=== PATIENT | female | born 1990 | race Caucasian/White ===

== ENCOUNTER 2017-06-26 11:03 | Inpatient (IN) | payer BC ==
[2017-06-26] MEDS ORDERED: Carboprost Tromethamine 250 MCG/1 ML Amp IM PRN (11:14)
[2017-06-26] MEDS ORDERED: Misoprostol 200 MCG Tab PO PRN (11:14)
[2017-06-26] MEDS ORDERED: Misoprostol 25 MCG (1/4 of 100 MCG) Tab VAG PRN (11:14)
[2017-06-26] MEDS ORDERED: Lidocaine 1% 50 ML MDV INJECT PRN (11:14)
[2017-06-26] MEDS ORDERED: Sodium Chloride 0.9% 10 ML Syringe FLUSH PRN (11:14)
[2017-06-26] MEDS ORDERED: Sodium Chloride 0.9% 2.5 ML Syringe FLUSH PRN (11:14)
[2017-06-26] MEDS ORDERED: Methylergonovine 0.2 MG/1 ML Amp IM PRN (11:14)
[2017-06-26] MEDS ORDERED: Butorphanol 1 MG/ML SDV IVPUSH PRN (11:14)
[2017-06-26] MEDS ORDERED: Water For Irrigation,Sterile 1,000 ML Container IRR PRN (11:14)
[2017-06-26] MEDS ORDERED: Terbutaline 1 MG/ML SDV SUBCUT PRN (11:14)
[2017-06-26] MEDS ORDERED: Misoprostol 25 MCG (1/4 of 100 MCG) Tab VAG SCH (11:15)
[2017-06-26] MEDS ORDERED: Oxytocin/0.9 % Sodium Chloride 30 UNIT/500 ML BAG IV SCH ×2 (11:15)
[2017-06-26] MEDS ORDERED: Ampicillin 2 GM in Sodium Chloride 0.9% 100 ML IV ONE (12:00)
[2017-06-26] MEDS: Lactated Ringers 1,000 ML IV SCH ×3 (12:13→23:50)
[2017-06-26 13:55] LABS: CHLORIDE,CL 107 mmol/L (98-110); SODIUM,NA 135 mmol/L (136-146)
[2017-06-26] MEDS: Ampicillin 1 GM in Sodium Chloride 0.9% 50 ML IV SCH ×2 (16:03→20:16)
[2017-06-26] MEDS: Nalbuphine 10 MG/1 ML Vial IVPUSH PRN ×2 (17:09→19:37)
[2017-06-27] MEDS ORDERED: Ropivacaine HCl/PF 100 ML ONE (00:30)
[2017-06-27] MEDS ORDERED: fentaNYL 100 MCG/2 ML SDV ONE (00:30)
[2017-06-27] MEDS: Ampicillin 1 GM in Sodium Chloride 0.9% 50 ML IV SCH ×4 (00:43→19:48)
[2017-06-27] MEDS: Lactated Ringers 1,000 ML IV SCH (01:23)
--- NOTE | 2017-06-27 01:47 | PCM.PREANE ---
Preanesthetic Assessment - Procedure Proposed Procedure: Active labor for term ; hypertension led to induction - Anesthesia/Transfusion/Family Hx Anesthesia History: Prior Anesthesia Without Reaction Family History of Anesthesia Reaction: No Intubation History: Unknown - Review of Systems General: Other (labor pains) Pulmonary: No Symptoms Cardiovascular: Other (hypertension with pregnacy - recent onset) Gastrointestinal: Other (GERD of ) Neurological: Other (labor pains) Other: Reports: None - Physical Assessment NPO Status Date: 06/26/17 NPO Status Time: 23:00 (H2O) Height: 5 ft 4 in Weight: 234 lb ASA Class: 2 Mental Status: Alert & Oriented x3 Airway Class: Mallampati = 2 Dentition: Reports: Normal Dentition Thyro-Mental Finger Breadths: 3 Mouth Opening Finger Breadths: 3 Lungs: Clear to Auscultation, Normal Respiratory Effort Cardiovascular: Regular Rate, Regular Rhythm, No Murmurs - Lab Values: Laboratory Last Values WBC 11.78 K/uL (4.0-11.0) H 06/26/17 11:50 RBC 5.04 M/uL (4.30-5.90) 06/26/17 11:50 Hgb 14.5 g/dL (12.0-16.0) 06/26/17 11:50 Hct 43.1 % (36.0-46.0) 06/26/17 11:50 MCV 85.5 fL (80.0-98.0) 06/26/17 11:50 MCH 28.8 pg (27.0-32.0) 06/26/17 11:50 MCHC 33.6 g/dL (31.0-37.0) 06/26/17 11:50 RDW Std Deviation 44.6 fl (28.0-62.0) 06/26/17 11:50 RDW Coeff of Juliet 15 % (11.0-15.0) 06/26/17 11:50 Plt Count 214 K/uL (150-400) 06/26/17 11:50 MPV 11.40 fL (7.40-12.00) 06/26/17 11:50 Nucleated RBC % 0.0 /100WBC 06/26/17 11:50 Nucleated RBCs # 0 K/uL 06/26/17 11:50 Sodium 135 mmol/L (136-146) L 06/26/17 13:29 Potassium 3.8 mmol/L (3.5-5.1) 06/26/17 13:29 Chloride 107 mmol/L (98-110) 06/26/17 13:29 Carbon Dioxide 18 mmol/L (21-31) L 06/26/17 13:29 BUN 10 mg/dL (6.0-23.0) 06/26/17 13:29 Creatinine 0.7 mg/dL (0.6-1.5) 06/26/17 13:29 Est Cr Clr Drug Dosing 105.17 mL/min 06/26/17 13:29 Estimated GFR (MDRD) > 60.0 ml/min 06/26/17 13:29 Glucose 71 mg/dL (60-110) 06/26/17 13:29 Uric Acid 6.1 mg/dL (2.1-6.2) 06/26/17 13:29 Calcium 9.0 mg/dL (8.8-10.8) 06/26/17 13:29 Total Bilirubin 0.5 mg/dL (0.1-1.5) 06/26/17 13:29 AST 15 IU/L (5-40) 06/26/17 13:29 ALT 15 IU/L (8-54) 06/26/17 13:29 Alkaline Phosphatase 164 (40-150) H 06/26/17 13:29 Total Protein 6.8 g/dL (6.0-8.0) 06/26/17 13:29 Albumin 3.3 g/dL (3.5-5.0) L 06/26/17 13:29 Globulin 3.5 g/dL (2.0-3.5) 06/26/17 13:29 Albumin/Globulin Ratio 0.9 (1.3-2.8) L 06/26/17 13:29 Blood Type B POSITIVE 06/26/17 11:50 Antibody Screen NEGATIVE 06/26/17 11:50 - Allergies Allergies/Adverse Reactions: Allergies Allergy/AdvReac Type Severity Reaction Status Date / Time No Known Allergies Allergy Verified 06/26/17 12:31 - Blood Blood Available: Yes Product(s) Available: PRBC (T and S) - Anesthesia Plan Free Text/Narrative:: description of plan with present Pre-Op Medication Ordered: None - Acknowledgements Anesthesia Type Planned: Epidural Pt an Appropriate Candidate for the Planned Anesthesia: Yes Alternatives and Risks of Anesthesia Discussed w Pt/Guardian: Yes Pt/Guardian Understands and Agrees with Anesthesia Plan: Yes PreAnesthesia Questionnaire Cardiovascular History: Reports: Hypertension INTAKE NURSE History: Reports: Neurological History: Reports: Migraines - CURRENT (IN HOUSE) MEDS Current Meds: Current Medications Butorphanol Tartrate (Stadol) 1 mg IVPUSH Q1H PRN PRN Reason: Pain Carboprost Tromethamine (Hemabate Ds) 250 mcg IM ASDIRECTED PRN PRN Reason: Post Hemorrhage Ampicillin Sodium 1 gm/ Sodium (Chloride) 50 mls @ 100 mls/hr IV Q4H RAD Last Admin: 06/27/17 00:43 Dose: 100 mls/hr Lactated Ringer's (Ringers, Lactated) 1,000 mls @ 80 mls/hr IV ASDIRECTED RAD Last Admin: 06/27/17 01:23 Dose: 80 mls/hr Oxytocin/Sodium Chloride (Oxytocin 30 Unit/500 Ml-Ns) 30 unit in 500 mls @ 500 mls/hr IV TITRATE RAD Oxytocin/Sodium Chloride (Oxytocin 30 Unit/500 Ml-Ns) 30 unit in 500 mls @ 2 mls/hr IV TITRATE RAD; 2 MUNITS/MIN PRN Reason: Protocol Last Titration: 06/27/17 00:35 Dose: 4 munits/min, 4 mls/hr Lidocaine HCl (Xylocaine 1%) 50 ml INJECT .ONCE PRN PRN Reason: Laceration repair Methylergonovine Maleate (Methergine) 0.2 mg IM ASDIRECTED PRN PRN Reason: Post Hemorrhage Misoprostol (Cytotec) 200 mcg PO .ONCE PRN PRN Reason: Post Hemorrhage Misoprostol (Cytotec) 25 mcg VAG .ONCE RAD Last Admin: 06/26/17 12:18 Dose: 25 mcg Misoprostol (Cytotec) 25 mcg VAG Q4H PRN PRN Reason: Cervical Ripening Nalbuphine HCl (Nubain) 10 mg IVPUSH Q1H PRN PRN Reason: Pain (severe 7-10) Last Admin: 06/26/17 19:37 Dose: 10 mg Sodium Chloride (Saline Flush) 10 ml FLUSH ASDIRECTED PRN PRN Reason: Keep Vein Open Sodium Chloride (Saline Flush) 2.5 ml FLUSH ASDIRECTED PRN PRN Reason: Keep Vein Open Sterile Water (Sterile Water For Irrigation) 1,000 ml IRR ASDIRECTED PRN PRN Reason: delivery Terbutaline Sulfate (Brethine) 0.25 mg SUBCUT ASDIRECTED PRN PRN Reason: Tacysystole Discontinued Medications Fentanyl (Sublimaze) Confirm Administered Dose 100 mcg .ROUTE .STK-MED ONE Stop: 06/27/17 00:31 Ampicillin Sodium 2 gm/ Sodium (Chloride) 100 mls @ 200 mls/hr IV ONETIME ONE Stop: 06/26/17 12:29 Last Admin: 06/26/17 12:13 Dose: 200 mls/hr Ropivacaine (Naropin 0.2%) Confirm Administered Dose 100 mls @ as directed .ROUTE .STK-MED ONE Stop: 06/27/17 00:31
[2017-06-27] MEDS ORDERED: Acetaminophen 325 MG Tab PO ONE (06:33)
[2017-06-27 07:15] LABS: CHLORIDE,CL 108 mmol/L (98-110); SODIUM,NA 137 mmol/L (136-146)
[2017-06-27] MEDS ORDERED: Dextrose 5%-Lactated Ringers 1,000 ML IV SCH (07:15)
--- NOTE | 2017-06-27 09:43 | PCM.SN ---
- Free Text/Narrative Note: Patient complaint of incomplete analgesia with epidural. Focus is a small "window" on her right side which she and her OB nurse have attempted to cover by turning her on her right side and then bolusing. Since she is doing well with progress to 7cm dilation, I pulled the catheter back 2cm and covered with new transparent material in sterile fashion. She should have enough medication available to complete her labor sequence.
[2017-06-27] MEDS ORDERED: oxyCODONE 5 MG Tab PO PRN (12:40)
[2017-06-27] MEDS ORDERED: Acetaminophen 500 MG Tab PO PRN ×2 (12:40)
[2017-06-27] MEDS ORDERED: Bisacodyl 10 MG Supp RECTAL PRN (12:40)
[2017-06-27] MEDS ORDERED: Docusate Sodium 100 MG Cap PO PRN (12:40)
[2017-06-27] MEDS ORDERED: Ibuprofen 400 MG Tab PO PRN (12:40)
[2017-06-27] MEDS ORDERED: Lanolin 100% Cream 7 GM Tube TOP PRN (12:40)
[2017-06-27] MEDS ORDERED: Benzocaine/Menthol 20%-0.5% Spray 78 GM Cannister TOP PRN (12:40)
[2017-06-27] MEDS ORDERED: Witch Hazel Medicated Pads 40/Jar TOP PRN (12:40)
[2017-06-27] MEDS ORDERED: Ibuprofen 800 MG Tab PO PRN (12:40)
--- NOTE | 2017-06-28 08:12 | PCM48HPAN ---
Post Anesthesia Note - EVALUATION WITHIN 48HRS OF ANESTHETIC Vital Signs in Normal Range: Yes Patient Participated in Evaluation: Yes Respiratory Function Stable: Yes Airway Patent: Yes Cardiovascular Function Stable: Yes Hydration Status Stable: Yes Pain Control Satisfactory: Yes Nausea and Vomiting Control Satisfactory: Yes Mental Status Recovered: Yes
--- NOTE | 2017-06-28 09:31 | PCM.PNPP ---
- General Info Date of Service: 06/28/17 Functional Status: Reports: Pain Controlled, Tolerating Diet, Ambulating, Urinating - Review of Systems General: Denies: Fever, Fatigue, Chills HEENT: Denies: Headaches Pulmonary: Denies: Shortness of Breath, Pleuritic Chest Pain Cardiovascular: Denies: Chest Pain, Palpitations Gastrointestinal: Denies: Abdominal Pain Genitourinary: Denies: Dysuria, Incontinence, Retention Neurological: Denies: Headache Psychiatric: Denies: Depression, Mood Lability, Anxiety - General Info Date of Service: 06/28/17 - Patient Data Vital Signs - Most Recent: Last Vital Signs Temp 36.8 C 06/28/17 06:45 Pulse 100 06/28/17 06:45 Resp 16 06/28/17 06:45 BP 140/88 06/28/17 06:45 Pulse Ox 96 06/28/17 06:45 Weight - Most Recent: 234 lb Lab Results - Last 24 Hours: Laboratory Results - last 24 hr 06/28/17 Range/Units 05:58 Hgb 12.6 (12.0-16.0) g/dL Hct 38.2 (36.0-46.0) % Med Orders - Current: Current Medications Acetaminophen (Tylenol Extra Strength) 500 mg PO Q4H PRN PRN Reason: Pain Acetaminophen (Tylenol Extra Strength) 1,000 mg PO Q4H PRN PRN Reason: Pain Benzocaine/Menthol (Dermoplast Pain Relief 20%-0.5% [place]) 78 gm TOP ASDIRECTED PRN PRN Reason: Perineal Comfort Measure Last Admin: 06/27/17 22:38 Dose: 78 gm Bisacodyl (Dulcolax) 10 mg RECTAL .ONCE PRN PRN Reason: Constipation Carboprost Tromethamine (Hemabate Ds) 250 mcg IM ASDIRECTED PRN PRN Reason: Post Hemorrhage Docusate Sodium (Colace) 100 mg PO BID PRN PRN Reason: Constipation Emollient Ointment (Lansinoh Hpa) 0 gm TOP ASDIRECTED PRN PRN Reason: Sore Nipples Oxytocin/Sodium Chloride (Oxytocin 30 Unit/500 Ml-Ns) 30 unit in 500 mls @ 500 mls/hr IV TITRATE RAD Last Infusion: 06/27/17 12:25 Dose: 150 mls/hr Oxytocin/Sodium Chloride (Oxytocin 30 Unit/500 Ml-Ns) 30 unit in 500 mls @ 2 mls/hr IV TITRATE RAD; 2 MUNITS/MIN PRN Reason: Protocol Last Titration: 06/27/17 11:58 Dose: 999 munits/min, 999 mls/hr Dextrose/Lactated Ringer's (Dextrose 5%-Lactated Ringers) 1,000 mls @ 75 mls/ hr IV ASDIRECTED RAD Last Admin: 06/27/17 07:20 Dose: 75 mls/hr Ibuprofen (Motrin) 400 mg PO Q4H PRN PRN Reason: Pain Ibuprofen (Motrin) 800 mg PO Q6H PRN PRN Reason: Pain Lidocaine HCl (Xylocaine 1%) 50 ml INJECT .ONCE PRN PRN Reason: Laceration repair Last Admin: 06/27/17 12:10 Dose: 50 ml Methylergonovine Maleate (Methergine) 0.2 mg IM ASDIRECTED PRN PRN Reason: Post Hemorrhage Misoprostol (Cytotec) 200 mcg PO .ONCE PRN PRN Reason: Post Hemorrhage Misoprostol (Cytotec) 25 mcg VAG .ONCE RAD Last Admin: 06/26/17 12:18 Dose: 25 mcg Misoprostol (Cytotec) 25 mcg VAG Q4H PRN PRN Reason: Cervical Ripening Oxycodone HCl (Oxycodone) 5 mg PO Q2H PRN PRN Reason: Pain Sodium Chloride (Saline Flush) 10 ml FLUSH ASDIRECTED PRN PRN Reason: Keep Vein Open Sodium Chloride (Saline Flush) 2.5 ml FLUSH ASDIRECTED PRN PRN Reason: Keep Vein Open Sterile Water (Sterile Water For Irrigation) 1,000 ml IRR ASDIRECTED PRN PRN Reason: delivery Last Admin: 06/27/17 12:08 Dose: 1,000 ml Terbutaline Sulfate (Brethine) 0.25 mg SUBCUT ASDIRECTED PRN PRN Reason: Tacysystole Witch Krysta (Tucks) 1 pad TOP ASDIRECTED PRN PRN Reason: comfort care Last Admin: 06/27/17 22:37 Dose: 1 pad Discontinued Medications Acetaminophen (Tylenol) 650 mg PO NOW ONE Stop: 06/27/17 06:34 Last Admin: 06/27/17 06:49 Dose: 650 mg Butorphanol Tartrate (Stadol) 1 mg IVPUSH Q1H PRN PRN Reason: Pain Fentanyl (Sublimaze) Confirm Administered Dose 100 mcg .ROUTE .STK-MED ONE Stop: 06/27/17 00:31 Ampicillin Sodium 2 gm/ Sodium (Chloride) 100 mls @ 200 mls/hr IV ONETIME ONE Stop: 06/26/17 12:29 Last Admin: 06/26/17 12:13 Dose: 200 mls/hr Ampicillin Sodium 1 gm/ Sodium (Chloride) 50 mls @ 100 mls/hr IV Q4H RAD Last Admin: 06/27/17 19:48 Dose: Not Given Lactated Ringer's (Ringers, Lactated) 1,000 mls @ 80 mls/hr IV ASDIRECTED [facility] Last Admin: 06/27/17 01:23 Dose: 80 mls/hr Ropivacaine (Naropin 0.2%) Confirm Administered Dose 100 mls @ as directed .ROUTE .STK-MED ONE Stop: 06/27/17 00:31 Nalbuphine HCl (Nubain) 10 mg IVPUSH Q1H PRN PRN Reason: Pain (severe 7-10) Last Admin: 06/26/17 19:37 Dose: 10 mg - Interaction Disposition, : in Room with Family Feeding: Attempted ; Nursed Fair/Poor, Continues to Breastfeed Support Person: - Recovery Exam Fundal Tone: Firm Fundal Level: 1 Fingerbreadths Below Umbilicus Fundal Placement: Midline Lochia Amount: Scant Lochia Color: Rubra/Red Perineum Description: Intact, Minimal Bruising/Swelling Episiotomy/Laceration: Approximated Urinary Elimination: Voided - Exam General: Alert, Oriented HEENT: Pupils Equal Neck: Supple Lungs: Clear to Auscultation, Normal Respiratory Effort Cardiovascular: Regular Rate, Regular Rhythm GI/Abdominal Exam: No Distention Extremities: Non-Tender, Pedal Edema Skin: Warm Psy/Mental Status: Alert, Normal Affect, Normal Mood - Problem List & Annotations (1) Vaginal delivery SNOMED Code(s): 251747244 Code(s): O80 - ENCOUNTER FOR FULL-TERM UNCOMPLICATED DELIVERY Status: Acute Current Visit: Yes (2) Gestational [-induced] hypertension without significant proteinuria , complicating childbirth SNOMED Code(s): 35745182 Code(s): O13.4 - GESTATNL HTN WITHOUT SIGNIFICANT PROTEIN, COMP CHILDBIRTH Status: Acute Current Visit: Yes - Problem List Review Problem List Initiated/Reviewed/Updated: Yes - Assessment Assessment:: PPD#1 s/p , IOL at 37 weeks for GHTN BP- slightly elevated but stable at 140/80's Denies S/S of preeclampsia - Plan Plan:: Cotinue to observe. Will keep in for 24 hours to monitoe BP. OOB--> ambulate ad gina Aim discharge today
--- NOTE | 2017-06-28 11:38 | OR ---
SURGEON: KORY RAMOS DATE OF PROCEDURE: 06/27/2017 PREOPERATIVE DIAGNOSIS: A 27-year-old for induction of labor at 37 weeks, 0 days secondary to gestational hypertension. GBS positive. POSTOPERATIVE DIAGNOSIS: Status post normal spontaneous vaginal delivery, gestational hypertension, Small for gestational age ESTIMATED BLOOD LOSS: 350 mL. ANESTHESIA: Epidural. FINDINGS: A live male delivered at 1158 hours. scores were 8 and 9. Weight was 2100 g. A second-degree laceration and clitoral tear. Three-vessel cord noted with a small placenta. INDICATIONS: The patient was diagnosed with gestational hypertension in the clinic. She had elevated blood pressures of 130s to 140s over 80s to 90s. She had 24-urine done, which was negative. Based on gestational hypertension, the patient was scheduled for induction of labor. The patient was admitted for induction of labor, and induction of labor was started with Cytotec. The patient received 1 dose of Cytotec, and she became 1, 20, -3. After the Cytotec, the patient had a spontaneous decelerations for about 5 minutes, which recovered back to baseline, and she also had occasional late decelerations. Because the patient was taz, CRB was then placed to traction. After CRB came off, the patient became 6, 80, -2. The patient ruptured spontaneously on her own. The patient had the IUPC then placed, and then Pitocin was titrated to achieve above 200 MVU. Shortly after, the patient made progress to fully dilated. DESCRIPTION OF PROCEDURE: The patient being fully dilated, she was encouraged to push. The patient pushed, delivered the head, followed by the anterior and posterior shoulder, and body the was placed on the mother's abdomen. Delayed cord clamping was observed, cord was clamped and cut. The placenta was delivered by controlled cord traction. The perineum was then inspected, was noted to have a second- degree laceration and a small clitoral tear, which was repaired. After repair, the uterus was then manually massaged. All clots were evacuated and bleeding was noted to be minimal after the procedure. All instrument and pad count were correct x2. The patient tolerated the procedure well. She was left in stable condition. BINH / ANATOLY /[id number] ANICETO
--- NOTE | 2017-06-29 08:22 | PCM.PNPP ---
<Judy Fernandez - Last Filed: 06/29/17 08:20> - General Info Date of Service: 06/29/17 Functional Status: Reports: Pain Controlled, Tolerating Diet, Ambulating, Urinating - Review of Systems General: Denies: Fever, Weakness, Fatigue Pulmonary: Denies: Shortness of Breath, Pleuritic Chest Pain, Cough Cardiovascular: Denies: Chest Pain, Palpitations, Dyspnea on Exertion Gastrointestinal: Denies: Abdominal Pain Genitourinary: Denies: Dysuria - General Info Date of Service: 06/29/17 - Patient Data Vital Signs - Most Recent: Last Vital Signs Temp 36.9 C 06/29/17 04:20 Pulse 82 06/29/17 04:20 Resp 14 06/29/17 04:20 BP 140/99 H 06/29/17 04:20 Pulse Ox 96 06/29/17 04:20 Weight - Most Recent: 106.141 kg Med Orders - Current: Current Medications Acetaminophen (Tylenol Extra Strength) 500 mg PO Q4H PRN PRN Reason: Pain Acetaminophen (Tylenol Extra Strength) 1,000 mg PO Q4H PRN PRN Reason: Pain Benzocaine/Menthol (Dermoplast Pain Relief 20%-0.5% [place]) 78 gm TOP ASDIRECTED PRN PRN Reason: Perineal Comfort Measure Last Admin: 06/27/17 22:38 Dose: 78 gm Bisacodyl (Dulcolax) 10 mg RECTAL .ONCE PRN PRN Reason: Constipation Carboprost Tromethamine (Hemabate Ds) 250 mcg IM ASDIRECTED PRN PRN Reason: Post Hemorrhage Docusate Sodium (Colace) 100 mg PO BID PRN PRN Reason: Constipation Emollient Ointment (Lansinoh Hpa) 0 gm TOP ASDIRECTED PRN PRN Reason: Sore Nipples Last Admin: 06/28/17 21:27 Dose: 1 tube Oxytocin/Sodium Chloride (Oxytocin 30 Unit/500 Ml-Ns) 30 unit in 500 mls @ 500 mls/hr IV TITRATE RAD Last Infusion: 06/27/17 12:25 Dose: 150 mls/hr Oxytocin/Sodium Chloride (Oxytocin 30 Unit/500 Ml-Ns) 30 unit in 500 mls @ 2 mls/hr IV TITRATE RAD; 2 MUNITS/MIN PRN Reason: Protocol Last Titration: 06/27/17 11:58 Dose: 999 munits/min, 999 mls/hr Dextrose/Lactated Ringer's (Dextrose 5%-Lactated Ringers) 1,000 mls @ 75 mls/ hr IV ASDIRECTED RAD Last Admin: 06/27/17 07:20 Dose: 75 mls/hr Ibuprofen (Motrin) 400 mg PO Q4H PRN PRN Reason: Pain Ibuprofen (Motrin) 800 mg PO Q6H PRN PRN Reason: Pain Last Admin: 06/28/17 16:27 Dose: 800 mg Lidocaine HCl (Xylocaine 1%) 50 ml INJECT .ONCE PRN PRN Reason: Laceration repair Last Admin: 06/27/17 12:10 Dose: 50 ml Methylergonovine Maleate (Methergine) 0.2 mg IM ASDIRECTED PRN PRN Reason: Post Hemorrhage Misoprostol (Cytotec) 200 mcg PO .ONCE PRN PRN Reason: Post Hemorrhage Misoprostol (Cytotec) 25 mcg VAG .ONCE RAD Last Admin: 06/26/17 12:18 Dose: 25 mcg Misoprostol (Cytotec) 25 mcg VAG Q4H PRN PRN Reason: Cervical Ripening Oxycodone HCl (Oxycodone) 5 mg PO Q2H PRN PRN Reason: Pain Sodium Chloride (Saline Flush) 10 ml FLUSH ASDIRECTED PRN PRN Reason: Keep Vein Open Sodium Chloride (Saline Flush) 2.5 ml FLUSH ASDIRECTED PRN PRN Reason: Keep Vein Open Sterile Water (Sterile Water For Irrigation) 1,000 ml IRR ASDIRECTED PRN PRN Reason: delivery Last Admin: 06/27/17 12:08 Dose: 1,000 ml Terbutaline Sulfate (Brethine) 0.25 mg SUBCUT ASDIRECTED PRN PRN Reason: Tacysystole Witch Krysta (Tucks) 1 pad TOP ASDIRECTED PRN PRN Reason: comfort care Last Admin: 06/27/17 22:37 Dose: 1 pad Discontinued Medications Acetaminophen (Tylenol) 650 mg PO NOW ONE Stop: 06/27/17 06:34 Last Admin: 06/27/17 06:49 Dose: 650 mg Butorphanol Tartrate (Stadol) 1 mg IVPUSH Q1H PRN PRN Reason: Pain Fentanyl (Sublimaze) Confirm Administered Dose 100 mcg .ROUTE .STK-MED ONE Stop: 06/27/17 00:31 Last Admin: 06/28/17 19:52 Dose: Not Given Ampicillin Sodium 2 gm/ Sodium (Chloride) 100 mls @ 200 mls/hr IV ONETIME ONE Stop: 06/26/17 12:29 Last Admin: 06/26/17 12:13 Dose: 200 mls/hr Ampicillin Sodium 1 gm/ Sodium (Chloride) 50 mls @ 100 mls/hr IV Q4H [facility] Last Admin: 06/27/17 19:48 Dose: Not Given Lactated Ringer's (Ringers, Lactated) 1,000 mls @ 80 mls/hr IV ASDIRECTED [facility] Last Admin: 06/27/17 01:23 Dose: 80 mls/hr Ropivacaine (Naropin 0.2%) Confirm Administered Dose 100 mls @ as directed .ROUTE .STK-MED ONE Stop: 06/27/17 00:31 Last Admin: 06/28/17 19:51 Dose: Not Given Nalbuphine HCl (Nubain) 10 mg IVPUSH Q1H PRN PRN Reason: Pain (severe 7-10) Last Admin: 06/26/17 19:37 Dose: 10 mg - Interaction Infant Disposition, : [place] in Room with Family Feeding: Attempted ; Nursed Fair/Poor, Continues to Breastfeed Support Person: - Recovery Exam Fundal Tone: Firm Fundal Level: At Umbilicus Fundal Placement: Midline Lochia Amount: Scant Lochia Color: Rubra/Red Perineum Description: Other (see below) Other Perinuem Description: 2nd degree laceration, repaired Episiotomy/Laceration: Approximated Bladder Status: Voiding Urinary Elimination: Voided - Exam General: Alert, Oriented Neck: Supple Lungs: Clear to Auscultation, Normal Respiratory Effort Cardiovascular: Regular Rate, Regular Rhythm GI/Abdominal Exam: Normal Bowel Sounds, Soft, Non-Tender, No Organomegaly, No Mass Extremities: Normal Inspection, Pedal Edema (trace) Skin: Warm, Dry, Intact - Problem List & Annotations (1) Vaginal delivery SNOMED Code(s): 565582480 Code(s): O80 - ENCOUNTER FOR FULL-TERM UNCOMPLICATED DELIVERY Status: Acute Current Visit: Yes - Problem List Review Problem List Initiated/Reviewed/Updated: Yes - Assessment Assessment:: PPD#2 s/p , IOL at 37 weeks for GHTN, BP- slightly elevated but stable at 140/80's, Denies S/S of preeclampsia. Will f/u up in clinic of BP check on Wednesday. Discharge home today. - Plan Plan:: Discharge home today. Nothing in the vagina for 6 weeks. Continue PNV while breast feeding. Can use OTC ibuprofen/tylenol as needed for pain. Instructed patient to call if she develops fever greater than 101 or bleeding through a large pad an hour. F/U with [facility] on Wednesday. <Miley Villalobos - Last Filed: 06/29/17 12:30> - Patient Data Vital Signs - Most Recent: Last Vital Signs Temp 36.9 C 06/29/17 04:20 Pulse 82 06/29/17 04:20 Resp 14 06/29/17 04:20 BP 140/99 H 06/29/17 04:20 Pulse Ox 96 06/29/17 04:20 Med Orders - Current: Current Medications Acetaminophen (Tylenol Extra Strength) 500 mg PO Q4H PRN PRN Reason: Pain Acetaminophen (Tylenol Extra Strength) 1,000 mg PO Q4H PRN PRN Reason: Pain Benzocaine/Menthol (Dermoplast Pain Relief 20%-0.5% [place]) 78 gm TOP ASDIRECTED PRN PRN Reason: Perineal Comfort Measure Last Admin: 06/27/17 22:38 Dose: 78 gm Bisacodyl (Dulcolax) 10 mg RECTAL .ONCE PRN PRN Reason: Constipation Carboprost Tromethamine (Hemabate Ds) 250 mcg IM ASDIRECTED PRN PRN Reason: Post Hemorrhage Docusate Sodium (Colace) 100 mg PO BID PRN PRN Reason: Constipation Emollient Ointment (Lansinoh Hpa) 0 gm TOP ASDIRECTED PRN PRN Reason: Sore Nipples Last Admin: 06/28/17 21:27 Dose: 1 tube Oxytocin/Sodium Chloride (Oxytocin 30 Unit/500 Ml-Ns) 30 unit in 500 mls @ 500 mls/hr IV TITRATE RAD Last Infusion: 06/27/17 12:25 Dose: 150 mls/hr Oxytocin/Sodium Chloride (Oxytocin 30 Unit/500 Ml-Ns) 30 unit in 500 mls @ 2 mls/hr IV TITRATE RAD; 2 MUNITS/MIN PRN Reason: Protocol Last Titration: 06/27/17 11:58 Dose: 999 munits/min, 999 mls/hr Dextrose/Lactated Ringer's (Dextrose 5%-Lactated Ringers) 1,000 mls @ 75 mls/ hr IV ASDIRECTED RAD Last Admin: 06/27/17 07:20 Dose: 75 mls/hr Ibuprofen (Motrin) 400 mg PO Q4H PRN PRN Reason: Pain Ibuprofen (Motrin) 800 mg PO Q6H PRN PRN Reason: Pain Last Admin: 06/28/17 16:27 Dose: 800 mg Lidocaine HCl (Xylocaine 1%) 50 ml INJECT .ONCE PRN PRN Reason: Laceration repair Last Admin: 06/27/17 12:10 Dose: 50 ml Methylergonovine Maleate (Methergine) 0.2 mg IM ASDIRECTED PRN PRN Reason: Post Hemorrhage Misoprostol (Cytotec) 200 mcg PO .ONCE PRN PRN Reason: Post Hemorrhage Misoprostol (Cytotec) 25 mcg VAG .ONCE RAD Last Admin: 06/26/17 12:18 Dose: 25 mcg Misoprostol (Cytotec) 25 mcg VAG Q4H PRN PRN Reason: Cervical Ripening Oxycodone HCl (Oxycodone) 5 mg PO Q2H PRN PRN Reason: Pain Sodium Chloride (Saline Flush) 10 ml FLUSH ASDIRECTED PRN PRN Reason: Keep Vein Open Sodium Chloride (Saline Flush) 2.5 ml FLUSH ASDIRECTED PRN PRN Reason: Keep Vein Open Sterile Water (Sterile Water For Irrigation) 1,000 ml IRR ASDIRECTED PRN PRN Reason: delivery Last Admin: 06/27/17 12:08 Dose: 1,000 ml Terbutaline Sulfate (Brethine) 0.25 mg SUBCUT ASDIRECTED PRN PRN Reason: Tacysystole Witch Krysta (Tucks) 1 pad TOP ASDIRECTED PRN PRN Reason: comfort care Last Admin: 06/27/17 22:37 Dose: 1 pad Discontinued Medications Acetaminophen (Tylenol) 650 mg PO NOW ONE Stop: 06/27/17 06:34 Last Admin: 06/27/17 06:49 Dose: 650 mg Butorphanol Tartrate (Stadol) 1 mg IVPUSH Q1H PRN PRN Reason: Pain Fentanyl (Sublimaze) Confirm Administered Dose 100 mcg .ROUTE .STK-MED ONE Stop: 06/27/17 00:31 Last Admin: 06/28/17 19:52 Dose: Not Given Ampicillin Sodium 2 gm/ Sodium (Chloride) 100 mls @ 200 mls/hr IV ONETIME ONE Stop: 06/26/17 12:29 Last Admin: 06/26/17 12:13 Dose: 200 mls/hr Ampicillin Sodium 1 gm/ Sodium (Chloride) 50 mls @ 100 mls/hr IV Q4H [facility] Last Admin: 06/27/17 19:48 Dose: Not Given Lactated Ringer's (Ringers, Lactated) 1,000 mls @ 80 mls/hr IV ASDIRECTED [facility] Last Admin: 06/27/17 01:23 Dose: 80 mls/hr Ropivacaine (Naropin 0.2%) Confirm Administered Dose 100 mls @ as directed .ROUTE .STK-MED ONE Stop: 06/27/17 00:31 Last Admin: 06/28/17 19:51 Dose: Not Given Nalbuphine HCl (Nubain) 10 mg IVPUSH Q1H PRN PRN Reason: Pain (severe 7-10) Last Admin: 06/26/17 19:37 Dose: 10 mg - Plan Plan:: Addendum. Patient seen at bedside today . she denies any headache , RUQ pain and blurring of vision. Her BP this Am is 120s/80s. She was informed of the possiblity of preclampsia and given precaution. Because BP is normal this am, will not start on any antihypertensives. Will have her come to the clinic on Wednesday for a BP check. she was told to call [facility] if heachache , RUQ pain and BV. If she has access to a BP machine at home she can take her BP
== END 2017-06-29 15:20 | disposition home or self-care (01) | DRG 560 ==
LOC: MW.OBCHECK 11:03 → MW.OB 11:14 → MW.OBCHECK 11:14 → MW.OB 11:17 → OBSVTOIN 06-27 12:40
PROVIDERS: ADMIT Obstetrics & Gynecology; ATTEND Obstetrics & Gynecology
PROC: 10E0XZZ Delivery of Products of Conception, External Approach (ICD-10-PCS; principal; 2017-06-27)
PROC: 3E0P7VZ Introduction of Hormone into Female Reproductive, Via Natural or Artificial Opening (ICD-10-PCS; 2017-06-27)
PROC: 0KQM0ZZ Repair Perineum Muscle, Open Approach (ICD-10-PCS; 2017-06-27)
PROC: 4A1H7CZ Monitoring of Products of Conception, Cardiac Rate, Via Natural or Artificial Opening (ICD-10-PCS; 2017-06-27)
DX: O13.4 Gestational [pregnancy-induced] hypertension without significant proteinuria, complicating childbirth (principal); O70.1 Second degree perineal laceration during delivery; O36.5930 Maternal care for other known or suspected poor fetal growth, third trimester, not applicable or unspecified; Z3A.37 37 weeks gestation of pregnancy; Z37.0 Single live birth
CPT/HCPCS: 36415; 51702; 59025; 59409; 80053; 84550; 85014; 85018; 85027; 85384; 85610; 85730; 86850; 86900; 86901; 88307; A9270-GY; J0290; J2300; J2590; J7030; J7042; J7050; J7120

== ENCOUNTER 2020-02-10 07:45 | Inpatient (IN) | payer BC ==
[2020-02-10] MEDS: Lactated Ringers 1,000 ML IV SCH ×4 (08:10→19:34)
[2020-02-10] MEDS ORDERED: Tranexamic Acid 1,000 MG in Sodium Chloride 0.9% 100 ML IV PRN (08:17)
[2020-02-10] MEDS ORDERED: Sodium Chloride 0.9% 10 ML SDV IV PRN (08:17)
[2020-02-10] MEDS ORDERED: Butorphanol 1 MG/ML SDV IVPUSH PRN (08:17)
[2020-02-10] MEDS ORDERED: Carboprost Tromethamine 250 MCG/1 ML Amp IM PRN (08:17)
[2020-02-10] MEDS ORDERED: Water For Irrigation,Sterile 1,000 ML Container IRR PRN (08:17)
[2020-02-10] MEDS ORDERED: Sodium Chloride 0.9% 2.5 ML Syringe FLUSH PRN (08:17)
[2020-02-10] MEDS ORDERED: Ondansetron 4 MG/2 ML SDV IVPUSH PRN (08:17)
[2020-02-10] MEDS ORDERED: Lidocaine 1% 50 ML MDV INJECT PRN (08:17)
[2020-02-10] MEDS ORDERED: Terbutaline 1 MG/ML SDV SUBCUT PRN (08:17)
[2020-02-10] MEDS ORDERED: Sodium Chloride 0.9% 10 ML Syringe FLUSH PRN (08:17)
[2020-02-10] MEDS ORDERED: Methylergonovine 0.2 MG/1 ML Amp IM PRN (08:17)
[2020-02-10] MEDS ORDERED: Misoprostol 200 MCG Tab PO PRN (08:17)
[2020-02-10] MEDS ORDERED: Oxytocin/0.9 % Sodium Chloride 30 UNIT/500 ML BAG IV SCH ×2 (08:30)
[2020-02-10] MEDS ORDERED: Ampicillin 2 GM in Sodium Chloride 0.9% 100 ML IV ONE (09:00)
[2020-02-10] MEDS ORDERED: Misoprostol 25 MCG (1/4 of 100 MCG) Tab VAG PRN ×2 (09:00→13:00)
[2020-02-10] MEDS: Ampicillin 1 GM in Sodium Chloride 0.9% 50 ML IV SCH ×3 (12:44→21:09)
[2020-02-10] MEDS ORDERED: fentaNYL 100 MCG/2 ML SDV ONE (18:03)
[2020-02-10] MEDS ORDERED: Ropivacaine HCl/PF 100 ML ONE (18:04)
--- NOTE | 2020-02-10 18:48 | PCM.PRNOTE ---
- Free Text/Narrative Note: Anes Note pt requested labor epidural for labor and delivery Risks and methods discussed. She wishes to proceed Level L3-L4 midline approach. Steril technique Chloroprep scrub to lumbar area Steril fenistrated drap applied Epidural space easily achieved. 2nd attempt using PEDRITO technique PEDRITO at 4cm. Cath threaded 5cm with ease Cath secured at skin at 10cm using steril clear adhesive dressing Test dose 1830 . 3cc 1.5% lido with epi neg Load 1833 10cc of 0.2% Ropivicain with 1mcg/cc fentanyl added Pump 1840 90cc same solution rate is 8cc/hr with 6cc q 20 min bolus THEODORA well Time with patient [id number] Tristian Muñoz [employer] CLEANER
[2020-02-10] MEDS ORDERED: Bisacodyl 10 MG Supp RECTAL PRN (22:02)
[2020-02-10] MEDS ORDERED: Acetaminophen 500 MG Tab PO PRN (22:02)
[2020-02-10] MEDS ORDERED: Benzocaine/Menthol 20%-0.5% Spray 78 GM Cannister TOP PRN (22:02)
[2020-02-10] MEDS ORDERED: Ibuprofen 400 MG Tab PO PRN (22:02)
[2020-02-10] MEDS ORDERED: Docusate Sodium 100 MG Cap PO PRN (22:02)
[2020-02-10] MEDS ORDERED: Witch Hazel Medicated Pads 40/Jar TOP PRN (22:02)
[2020-02-10] MEDS ORDERED: Lanolin 100% Cream 7 GM Tube TOP PRN (22:02)
[2020-02-10] MEDS ORDERED: oxyCODONE 5 MG Tab PO PRN (22:02)
--- NOTE | 2020-02-10 22:09 | PCM.OPNOTE ---
- General Post-Op/Procedure Note Date of Surgery/Procedure: 02/10/20 Operative Procedure(s): / repair of superficial labial lacerations and 2nd MLL Findings: Viable female APGARs 9, 9 weight 7 lb 7 oz. Spontaneous delivery intact placenta with 3V cord. Pre Op Diagnosis: 40/5 week IUP. IOL for past due PG Post-Op Diagnosis: Same Anesthesia Technique: Epidural Primary Surgeon: Rosaura Son EBL in mLs: 250 Complications: none known Condition: Stable Free Text/Narrative:: Dictation [id number]
--- NOTE | 2020-02-10 23:50 | OR ---
SURGEON: Rosaura Son M.D. DATE OF PROCEDURE: 02/10/2020 PREOPERATIVE DIAGNOSES: 1. A 40 and 5 week intrauterine . 2. Induction of labor for past due . POSTOPERATIVE DIAGNOSES: 1. A 40 and 5 week intrauterine . 2. Induction of labor for past due . PROCEDURE: Spontaneous vaginal delivery with repair of a superficial bilateral labial laceration and second-degree midline laceration. PRIMARY SURGEON: Rosaura Son MD. ANESTHESIA: Epidural. ESTIMATED BLOOD LOSS: 250 mL. COMPLICATIONS: None known. FINDINGS: Viable female. scores 9 at 1 minute, 9 at 5 minutes. Weight of 7 pounds 7 ounces. Spontaneous delivery. Intact placenta, 3-vessel cord. DISPOSITION: Infant to nursery, mom in LDRP. PROCEDURE DETAILS: Harmony is a 29-year-old G2, P1 at 40 and 5 weeks' gestational age, who presents on the net front end developer of 02/10/2020 for scheduled induction of labor due to past due . She underwent Cytotec ripening and then transitioned to Pitocin. She underwent ampicillin prophylaxis for group B strep positive status. She is COVID negative. heart tones category 1. The patient became increasingly uncomfortable and underwent regional anesthesia in the form of epidural, became more comfortable and thereafter was found to be 2 cm, 60% effaced, -2 station. Amniotomy was performed. Clear fluid was returned and an IUPC was placed. The patient began to progress much more rapidly thereafter, but then shortly over 2 hours, she progressed to complete, 100% effaced, +2 station, was called for delivery. Upon my arrival, the patient was placed in modified dorsal lithotomy position, was prepped and draped in the usual aseptic manner. Began pushing efforts, was able to push readily to a +4 station, was able to deliver infant's head atraumatically spontaneously, followed by anterior shoulder, posterior shoulder, and remainder of the body without difficulty. The 's oropharynx and nares were bulb suctioned. The infant was handed off to her mother with attending nursing staff at her side. After a delay, cord was clamped x2 and cut. Cord arterial, cord venous, cord blood sampling was obtained. Light pressure was applied while the placenta was delivered spontaneously intact. Vigorous fundal uterine massage was then applied while 30 units of Pitocin was delivered in 500 mL of IV fluid. Upon inspection of cervix, vaginal sidewalls, and perineum, there was found to be superficial bilateral labial lacerations. This was mainly due to her lichen sclerosus. There was just very little elasticity to this tissue. Therefore, these were reapproximated using the 3-0 Vicryl in continuous running fashion. There was also a second-degree midline laceration repaired using 3-0 Vicryl in usual fashion. Hemostasis appeared evident. Sponge, instrument, and needle count was correct. The patient remained in LDRP, to nursery. KEMAR / ANATOLY /[id number]
[2020-02-11] MEDS: Ibuprofen 800 MG Tab PO PRN ×3 (01:38→15:50)
[2020-02-11] MEDS: Acetaminophen 500 MG Tab PO PRN ×2 (08:19→15:49)
--- NOTE | 2020-02-11 08:45 | PCM.PNPP ---
- General Info Date of Service: 02/11/20 Functional Status: Reports: Pain Controlled, Tolerating Diet, Ambulating, Urinating - Review of Systems General: Denies: Fever, Weakness, Fatigue Pulmonary: Denies: Shortness of Breath Cardiovascular: Denies: Chest Pain, Palpitations, Lightheadedness Gastrointestinal: Denies: Abdominal Pain, Nausea, Vomiting Genitourinary: Denies: Flank Pain Musculoskeletal: Reports: No Symptoms Skin: Reports: No Symptoms Neurological: Reports: No Symptoms Psychiatric: Reports: No Symptoms - General Info Date of Service: 02/11/20 - Patient Data Vital Signs - Most Recent: Last Vital Signs Temp 35.9 C L 02/11/20 08:00 Pulse 70 02/11/20 08:00 Resp 14 02/11/20 08:00 BP 135/82 02/11/20 08:00 Pulse Ox 97 02/11/20 08:00 Weight - Most Recent: 104.78 kg Lab Results - Last 24 Hours: Laboratory Results - last 24 hr 02/10/20 02/10/20 02/10/20 Range/Units 08:00 08:08 09:32 WBC 10.23 (4.0-11.0) K/uL RBC 4.66 (4.30-5.90) M/uL Hgb 12.8 (12.0-16.0) g/dL Hct 39.2 (36.0-46.0) % MCV 84.1 (80.0-98.0) fL MCH 27.5 (27.0-32.0) pg MCHC 32.7 (31.0-37.0) g/dL RDW Std Deviation 43.5 (28.0-62.0) fl RDW Coeff of Juliet 14 (11.0-15.0) % Plt Count 162 (150-400) K/uL MPV 12.10 H (7.40-12.00) fL Nucleated RBC % 0.0 /100WBC Nucleated RBCs # 0 K/uL Cord ABG pH (7.18-7.38) Cord ABG Base Excess (-10--2) Cord VBG pH (7.25-7.45) Cord VBG Base Excess (-10--2) COVID-19 (HALEY) NEGATIVE (NEGATIVE) Blood Type B POSITIVE Antibody Screen NEGATIVE 02/10/20 02/11/20 Range/Units 21:36 06:30 WBC (4.0-11.0) K/uL RBC (4.30-5.90) M/uL Hgb 11.6 L (12.0-16.0) g/dL Hct 36.0 (36.0-46.0) % MCV (80.0-98.0) fL MCH (27.0-32.0) pg MCHC (31.0-37.0) g/dL RDW Std Deviation (28.0-62.0) fl RDW Coeff of Juliet (11.0-15.0) % Plt Count (150-400) K/uL MPV (7.40-12.00) fL Nucleated RBC % /100WBC Nucleated RBCs # K/uL Cord ABG pH 7.292 (7.18-7.38) Cord ABG Base Excess -5 (-10--2) Cord VBG pH 7.363 (7.25-7.45) Cord VBG Base Excess -4 (-10--2) COVID-19 (HALEY) (NEGATIVE) Blood Type Antibody Screen Med Orders - Current: Current Medications Acetaminophen (Tylenol Extra Strength) 500 mg PO Q4H PRN PRN Reason: Pain Acetaminophen (Tylenol Extra Strength) 1,000 mg PO Q4H PRN PRN Reason: Pain Last Admin: 02/11/20 08:19 Dose: 1,000 mg Documented by: Benzocaine/Menthol (Dermoplast Pain Relief 20%-0.5% Corcoran) 78 gm TOP ASDIRECTED PRN PRN Reason: Perineal Comfort Measure Last Admin: 02/11/20 01:28 Dose: 1 canister Documented by: Bisacodyl (Dulcolax) 10 mg RECTAL ONETIME PRN PRN Reason: Constipation Carboprost Tromethamine (Hemabate Ds) 250 mcg IM ASDIRECTED PRN PRN Reason: Post Hemorrhage Docusate Sodium (Colace) 100 mg PO BID PRN PRN Reason: Constipation Last Admin: 02/11/20 08:19 Dose: 100 mg Documented by: Emollient Ointment (Lansinoh Hpa) 0 gm TOP ASDIRECTED PRN PRN Reason: Sore Nipples Oxytocin/Sodium Chloride (Oxytocin 30 Unit/500 Ml-Ns) 30 unit in 500 mls @ 999 mls/hr IV TITRATE RAD Tranexamic Acid 1,000 mg/ (Sodium Chloride) 110 mls @ 660 mls/hr IV ONETIME PRN PRN Reason: Bleeding Oxytocin/Sodium Chloride (Oxytocin 30 Unit/500 Ml-Ns) 30 unit in 500 mls @ 2 mls/hr IV TITRATE RAD; Protocol Last Titration: 02/10/20 17:48 Dose: 4 munits/min, 4 mls/hr Documented by: Lactated Ringer's (Ringers, Lactated) 1,000 mls @ 150 mls/hr IV ASDIRECTED RAD Last Admin: 02/10/20 19:34 Dose: 150 mls/hr Documented by: Ibuprofen (Motrin) 400 mg PO Q4H PRN PRN Reason: Pain Ibuprofen (Motrin) 800 mg PO Q6H PRN PRN Reason: Pain Last Admin: 02/11/20 08:17 Dose: 800 mg Documented by: Lidocaine HCl (Xylocaine 1%) 50 ml INJECT ONETIME PRN PRN Reason: Laceration repair Methylergonovine Maleate (Methergine) 0.2 mg IM ASDIRECTED PRN PRN Reason: Post Hemorrhage Ondansetron HCl (Zofran) 4 mg IVPUSH Q6H PRN PRN Reason: Nausea/Vomiting Oxycodone HCl (Oxycodone) 5 mg PO Q2H PRN PRN Reason: Pain Sodium Chloride (Saline Flush) 10 ml FLUSH ASDIRECTED PRN PRN Reason: Keep Vein Open Sodium Chloride (Saline Flush) 2.5 ml FLUSH ASDIRECTED PRN PRN Reason: Keep Vein Open Sodium Chloride (Normal Saline) 10 ml IV ASDIRECTED PRN PRN Reason: IV Use Sterile Water (Sterile Water For Irrigation) 1,000 ml IRR ASDIRECTED PRN PRN Reason: delivery Witch Krysta (Tucks) 1 pad TOP ASDIRECTED PRN PRN Reason: comfort care Last Admin: 02/11/20 01:28 Dose: 1 container Documented by: Discontinued Medications Butorphanol Tartrate (Stadol) 1 mg IVPUSH Q1H PRN PRN Reason: Pain Fentanyl (Sublimaze) Confirm Administered Dose 100 mcg .ROUTE .STK-MED ONE Stop: 02/10/20 18:04 Ampicillin Sodium 2 gm/ Sodium (Chloride) 100 mls @ 200 mls/hr IV ONETIME ONE Stop: 02/10/20 09:29 Last Admin: 02/10/20 09:09 Dose: 200 mls/hr Documented by: Ampicillin Sodium 1 gm/ Sodium (Chloride) 50 mls @ 100 mls/hr IV Q4H RAD Last Admin: 02/10/20 21:09 Dose: 100 mls/hr Documented by: Ropivacaine (Naropin 0.2%) Confirm Administered Dose 100 mls @ as directed .ROUTE .STK-MED ONE Stop: 02/10/20 18:05 Misoprostol (Cytotec) 200 mcg PO ONETIME PRN PRN Reason: Post Hemorrhage Misoprostol (Cytotec) 25 mcg VAG ONETIME PRN PRN Reason: Cervical Ripening Last Admin: 02/10/20 09:20 Dose: 25 mcg Documented by: Misoprostol (Cytotec) 25 mcg VAG Q4H PRN PRN Reason: Cervical Ripening Last Admin: 02/10/20 12:50 Dose: 25 mcg Documented by: Terbutaline Sulfate (Brethine) 0.25 mg SUBCUT ASDIRECTED PRN PRN Reason: Tacysystole - Interaction Support Person: Significant Other - Recovery Exam Fundal Tone: Firm Fundal Level: At Umbilicus Fundal Placement: Midline Lochia Amount: Small Lochia Color: Rubra/Red Episiotomy/Laceration: Approximated - Exam General: Alert, Oriented Lungs: Normal Respiratory Effort Cardiovascular: Regular Rate, Regular Rhythm GI/Abdominal Exam: Normal Bowel Sounds, Soft Extremities: Pedal Edema (trace). No: Yovana's Sign Skin: Warm, Dry, Intact Neurological: No New Focal Deficit Psy/Mental Status: Alert, Normal Affect, Normal Mood - Problem List & Annotations (1) Vaginal delivery SNOMED Code(s): 563183010 Code(s): O80 - ENCOUNTER FOR FULL-TERM UNCOMPLICATED DELIVERY Status: Acute Current Visit: No - Problem List Review Problem List Initiated/Reviewed/Updated: Yes - My Orders Last 24 Hours: My Active Orders 02/10/20 08:08 RPR (SYPHILIS SERO) W/ RFLX [REF] Routine 02/10/20 08:17 Patient Status [ADT] Routine Carboprost Tromethamine [Hemabate DS] 250 mcg IM ASDIRECTED PRN Lidocaine 1% [Xylocaine 1%] 50 ml INJECT ONETIME PRN Methylergonovine [Methergine] 0.2 mg IM ASDIRECTED PRN Ondansetron [Zofran] 4 mg IVPUSH Q6H PRN Sodium Chloride 0.9% [Normal Saline] 10 ml IV ASDIRECTED PRN Sodium Chloride 0.9% [Saline Flush] 10 ml FLUSH ASDIRECTED PRN Sodium Chloride 0.9% [Saline Flush] 2.5 ml FLUSH ASDIRECTED PRN Tranexamic Acid [Cyklokapron] 1,000 mg Sodium Chloride 0.9% [Normal Saline] 100 ml IV ONETIME Water For Irrigation,Sterile [Sterile Water for Irrigation] 1,000 ml IRR ASDIRECTED PRN Peripheral IV Insertion Adult [OM.PC] Routine Resuscitation Status Routine 02/10/20 08:30 Lactated Ringers [Ringers, Lactated] 1,000 ml IV ASDIRECTED Oxytocin/0.9 % Sodium Chloride [Oxytocin 30 Unit/500 ML-NS] 30 unit in 500 ml IV TITRATE Oxytocin/0.9 % Sodium Chloride [Oxytocin 30 Unit/500 ML-NS] 30 unit in 500 ml IV TITRATE Medication Administration Instruction [OM.PC] Q3H 02/10/20 22:02 Patient Status [ADT] Routine May Shower [RC] ASDIRECTED Notify Provider Vital Signs [RC] ASDIRECTED Up ad Ifeoma [RC] ASDIRECTED Vital Signs [RC] PER UNIT ROUTINE Acetaminophen [Tylenol Extra Strength] 1,000 mg PO Q4H PRN Acetaminophen [Tylenol Extra Strength] 500 mg PO Q4H PRN Benzocaine/Menthol [Dermoplast Pain Relief 20%-0.5% Corcoran] 78 gm TOP ASDIRECTED PRN Docusate Sodium [Colace] 100 mg PO BID PRN Ibuprofen [Motrin] 400 mg PO Q4H PRN Ibuprofen [Motrin] 800 mg PO Q6H PRN Lanolin [Lansinoh HPA] See Dose Instructions TOP ASDIRECTED PRN bisacodyL [Dulcolax] 10 mg RECTAL ONETIME PRN oxyCODONE 5 mg PO Q2H PRN witch Krysta [Tucks] 1 pad TOP ASDIRECTED PRN Assess Lochia [WOMSER] Per Unit Routine Assess Uterine Involution [WOMSER] Per Unit Routine Ice Therapy [OM.PC] Per Unit Routine Perineal Care [OM.PC] Per Unit Routine Peripheral IV Discontinue [OM.PC] Routine Sitz Bath [OM.PC] Per Unit Routine 02/10/20 22:03 Cooling Warming Measures [RC] ASDIRECTED 02/11/20 08:43 Ready for Discharge [RC] PER UNIT ROUTINE - Assessment Assessment:: PPD 1 status post - Plan Plan:: Doing well overall--really prefers to go home this evening. Discharge to home. Discharge instructions reviewed. Follow up at [facility] 6 weeks. Infection and bleeding warnings.
== END 2020-02-11 23:50 | disposition home or self-care (01) | DRG 560 ==
LOC: MW.OBCHECK 07:45 → MW.OB 07:46 → MW.OBCHECK 08:17 → OBSVTOIN 22:02 → MW.OB 02-11 02:41
PROVIDERS: ADMIT Obstetrics & Gynecology; ATTEND Obstetrics & Gynecology
PROC: 10E0XZZ Delivery of Products of Conception, External Approach (ICD-10-PCS; principal; 2020-02-10)
PROC: 10907ZC Drainage of Amniotic Fluid, Therapeutic from Products of Conception, Via Natural or Artificial Opening (ICD-10-PCS; 2020-02-10)
PROC: 10H07YZ Insertion of Other Device into Products of Conception, Via Natural or Artificial Opening (ICD-10-PCS; 2020-02-10)
PROC: 0KQM0ZZ Repair Perineum Muscle, Open Approach (ICD-10-PCS; 2020-02-10)
PROC: 3E0R3BZ Introduction of Anesthetic Agent into Spinal Canal, Percutaneous Approach (ICD-10-PCS; 2020-02-10)
PROC: 00HU33Z Insertion of Infusion Device into Spinal Canal, Percutaneous Approach (ICD-10-PCS; 2020-02-10)
PROC: 3E0P7VZ Introduction of Hormone into Female Reproductive, Via Natural or Artificial Opening (ICD-10-PCS; 2020-02-10)
PROC: 3E033VJ Introduction of Other Hormone into Peripheral Vein, Percutaneous Approach (ICD-10-PCS; 2020-02-10)
DX: O48.0 Post-term pregnancy (principal); Z37.0 Single live birth; Z3A.40 40 weeks gestation of pregnancy; O70.1 Second degree perineal laceration during delivery; Z11.59 Encounter for screening for other viral diseases
CPT/HCPCS: 36415; 51702; 59025; 59409; 82803; 85014; 85018; 85027; 86592; 86850; 86900; 86901; A9270-GY; J0290; J2590; J2795; J3010; J7050; J7120; U0002

== ENCOUNTER 2020-05-16 18:59 | Emergency (ER) | payer BC ==
--- NOTE | 2020-05-16 19:20 | EDM.PDOC ---
ED HPI GENERAL MEDICAL PROBLEM - General Chief Complaint: Respiratory Problem Stated Complaint: DIIFCULTY BREATHING, COVID Time Seen by Provider: 05/16/20 19:55 Source of Information: Reports: Patient History Limitations: Reports: No Limitations - History of Present Illness INITIAL COMMENTS - FREE TEXT/NARRATIVE: Patient is a 29-year-old female who presents today for shortness of breath and feeling dizzy. Patient states she was diagnosed with COVID-19 a few days ago. Patient states that her doctor informed her that if she felt like she was have difficulty breathing to please return to the ED. Patient denies any chest pain nausea vomiting or decreased p.o. intake. Patient denies any leg swelling. 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: , Spontaneous Neurological History: Reports: Migraines, Other (See Below) Other Neuro History: only ever takes Tylenol for migraines Dermatologic History: Reports: Psoriasis, Other (See Below) Other Dermatologic History: topical ointment, did not use during - Infectious Disease History Infectious Disease History: Reports: Chicken Pox - Past Surgical History Cardiovascular Surgical History: Reports: None Neurological Surgical History: Reports: None Dermatological Surgical History: Reports: None Social & Family History - Family History Family Medical History: Noncontributory Cardiac: Reports: Heart Failure, Hypertension Endocrine/Metabolic: Reports: Diabetes, Gestational Oncologic: Reports: Breast - Caffeine Use Caffeine Use: Reports: Coffee Caffeine Use Comment: a cup a day, most days ED ROS GENERAL - Review of Systems Review Of Systems: Comprehensive ROS is negative, except as noted in HPI. Constitutional: Reports: No Symptoms HEENT: Reports: No Symptoms Respiratory: Reports: Shortness of Breath Cardiovascular: Reports: No Symptoms Endocrine: Reports: No Symptoms GI/Abdominal: Reports: No Symptoms : Reports: No Symptoms Musculoskeletal: Reports: No Symptoms Skin: Reports: No Symptoms Neurological: Reports: Dizziness Psychiatric: Reports: No Symptoms Hematologic/Lymphatic: Reports: No Symptoms Immunologic: Reports: No Symptoms ED EXAM, GENERAL - Physical Exam Exam: See Below Exam Limited By: No Limitations General Appearance: Alert, No Apparent Distress Head: Atraumatic Neck: Normal Inspection Respiratory/Chest: No Respiratory Distress, Lungs Clear, Normal Breath Sounds Cardiovascular: Regular Rate, Rhythm GI/Abdominal: Normal Bowel Sounds, Soft, Non-Tender Extremities: Normal Range of Motion Neurological: Alert, Oriented, Normal Cognition, Normal Gait #1 Interpretation EKG Date: 05/16/20 Time: 20:27 Rhythm: Other (sinus tach) Rate (Beats/Min): 103 [place]: Normal ST-T: Normal Course - Vital Signs Last Recorded V/S: Last Vital Signs Temp 97.2 F 05/16/20 19:05 Pulse 122 H 05/16/20 19:05 Resp 20 05/16/20 19:05 BP 101/64 05/16/20 19:05 Pulse Ox 95 05/16/20 19:05 - Orders/Labs/Meds Orders: Active Orders 24 hr Category Date Time Status EKG Documentation Completion [RC] STAT Care 05/16/20 19:40 Active Labs: Laboratory Tests 05/16/20 05/16/20 05/16/20 Range/Units 19:15 19:36 19:36 WBC 4.06 (4.0-11.0) K/uL RBC 5.33 (4.30-5.90) M/uL Hgb 14.5 (12.0-16.0) g/dL Hct 44.9 (36.0-46.0) % MCV 84.2 (80.0-98.0) fL MCH 27.2 (27.0-32.0) pg MCHC 32.3 (31.0-37.0) g/dL RDW Std Deviation 42.2 (28.0-62.0) fl RDW Coeff of Juliet 14 (11.0-15.0) % Plt Count 200 (150-400) K/uL MPV 10.00 (7.40-12.00) fL Neut % (Auto) 42.9 L (48.0-80.0) % Lymph % (Auto) 49.0 H (16.0-40.0) % Haakon % (Auto) 6.9 (0.0-15.0) % Eos % (Auto) 1.0 (0.0-7.0) % Baso % (Auto) 0.2 (0.0-1.5) % Neut # (Auto) 1.7 (1.4-5.7) K/uL Lymph # (Auto) 2.0 (0.6-2.4) K/uL Haakon # (Auto) 0.3 (0.0-0.8) K/uL Eos # (Auto) 0.0 (0.0-0.7) K/uL Baso # (Auto) 0.0 (0.0-0.1) K/uL Nucleated RBC % 0.0 /100WBC Nucleated RBCs # 0 K/uL D-Dimer, Quantitative 0.68 H (0.0-0.50) mg/L FEU Sodium (136-145) mmol/L Potassium (3.5-5.1) mmol/L Chloride (98-107) mmol/L Carbon Dioxide (21.0-32.0) mmol/L BUN (7.0-18.0) mg/dL Creatinine (0.6-1.0) mg/dL Est Cr Clr Drug Dosing mL/min Estimated GFR (MDRD) ml/min Glucose (74-106) mg/dL Calcium (8.5-10.1) mg/dL Total Bilirubin (0.2-1.0) mg/dL AST (15-37) IU/L ALT (14-63) IU/L Alkaline Phosphatase (46-116) U/L Total Protein (6.4-8.2) g/dL Albumin (3.4-5.0) g/dL Globulin (2.6-4.0) g/dL Albumin/Globulin Ratio (0.9-1.6) Urine HCG, Qual NEGATIVE (NEGATIVE) 05/16/20 Range/Units 19:36 WBC (4.0-11.0) K/uL RBC (4.30-5.90) M/uL Hgb (12.0-16.0) g/dL Hct (36.0-46.0) % MCV (80.0-98.0) fL MCH (27.0-32.0) pg MCHC (31.0-37.0) g/dL RDW Std Deviation (28.0-62.0) fl RDW Coeff of Juliet (11.0-15.0) % Plt Count (150-400) K/uL MPV (7.40-12.00) fL Neut % (Auto) (48.0-80.0) % Lymph % (Auto) (16.0-40.0) % Haakon % (Auto) (0.0-15.0) % Eos % (Auto) (0.0-7.0) % Baso % (Auto) (0.0-1.5) % Neut # (Auto) (1.4-5.7) K/uL Lymph # (Auto) (0.6-2.4) K/uL Haakon # (Auto) (0.0-0.8) K/uL Eos # (Auto) (0.0-0.7) K/uL Baso # (Auto) (0.0-0.1) K/uL Nucleated RBC % /100WBC Nucleated RBCs # K/uL D-Dimer, Quantitative (0.0-0.50) mg/L FEU Sodium 140 (136-145) mmol/L Potassium 3.9 (3.5-5.1) mmol/L Chloride 104 (98-107) mmol/L Carbon Dioxide 26.7 (21.0-32.0) mmol/L BUN 9 (7.0-18.0) mg/dL Creatinine 1.0 (0.6-1.0) mg/dL Est Cr Clr Drug Dosing 72.32 mL/min Estimated GFR (MDRD) > 60.0 ml/min Glucose 106 (74-106) mg/dL Calcium 8.3 L (8.5-10.1) mg/dL Total Bilirubin 0.4 (0.2-1.0) mg/dL AST 50 H (15-37) IU/L ALT 69 H (14-63) IU/L Alkaline Phosphatase 107 (46-116) U/L Total Protein 7.5 (6.4-8.2) g/dL Albumin 3.8 (3.4-5.0) g/dL Globulin 3.7 (2.6-4.0) g/dL Albumin/Globulin Ratio 1.0 (0.9-1.6) Urine HCG, Qual (NEGATIVE) Meds: Medications Discontinued Medications Generic Name Dose Route Start Last Admin Trade Name Freq PRN Reason Stop Dose Admin Iopamidol 90 ml 05/16/20 20:58 05/16/20 20:58 Isovue Multipack-370 (76%) IVPUSH 05/16/20 20:59 90 ml ONETIME STA Administration Departure - Departure Time of Disposition: 21:39 Disposition: Home, Self-Care 01 Clinical Impression: Dyspnea - Discharge Information *PRESCRIPTION DRUG MONITORING PROGRAM REVIEWED*: Not Applicable *COPY OF PRESCRIPTION DRUG MONITORING REPORT IN PATIENT RODRICK: Not Applicable Instructions: Shortness of Breath, Adult Referrals: PCP,None [Primary Care Provider] - Forms: ED Department Discharge Additional Instructions: The following information is given to patients seen in the emergency department who are being discharged to home. This information is to outline your options for follow-up care. We provide all patients seen in our emergency department with a follow-up referral. The need for follow-up, as well as the timing and circumstances, are variable depending upon the specifics of your emergency department visit. If you don't have a primary care physician on staff, we will provide you with a referral. We always advise you to contact your personal physician following an emergency department visit to inform them of the circumstance of the visit and for follow-up with them and/or the need for any referrals to a consulting specialist. The emergency department will also refer you to a specialist when appropriate. This referral assures that you have the opportunity for follow-up care with a specialist. All of these measure are taken in an effort to provide you with optimal care, which includes your follow-up. Under all circumstances we always encourage you to contact your private physician who remains a resource for coordinating your care. When calling for follow-up care, please make the office aware that this follow-up is from your recent emergency room visit. If for any reason you are refused follow-up, please contact the Emergency Department at and asked to speak to the emergency department charge nurse. Please continue to monitor use of at home. If oxygen level drops less than 90% please return to the ER. If you like he cannot catch of breath or fevers please return to the ED. Sepsis Event Note (ED) - Evaluation Sepsis Screening Result: No Definite Risk - Focused Exam Vital Signs: Vital Signs Temp Pulse Resp BP Pulse Ox 05/16/20 19:05 97.2 F 122 H 20 101/64 95 - My Orders Last 24 Hours: My Active Orders 05/16/20 19:40 EKG Documentation Completion [RC] STAT - Assessment/Plan Last 24 Hours: My Active Orders 05/16/20 19:40 EKG Documentation Completion [RC] STAT Plan: Patient 29-year-old female presents today for shortness of breath. Patient was diagnosed with Covid. Patient is satting 97% on room air. Will obtain labs and x-ray and reassess. Patient also is tachycardic to the 120s will also obtain EKG. Patient had elevated D-dimer. Patient CT scan showed groundglass opacities. Patient is already aware of Covid diagnosis. Patient oxygen level remains greater 95% on room air. Patient will be discharged home with albuterol inhaler. Patient given strict return precautions.
--- NOTE | 2020-05-16 19:36 | CR ---
INDICATION: Shortness of breath TECHNIQUE: Chest 1 views COMPARISON: None available FINDINGS: There is mild central bronchial thickening with questionable airspace opacity in the left lung base and obscuration of the left costophrenic angle. There is no pneumothorax. The cardiac silhouette is within normal limits. The bony thorax is grossly intact. IMPRESSION: Demonstration of mild central bronchial thickening and airspace opacity within the left greater than right lung bases which may represent atelectasis versus infiltrates. Dictated by Kendrick Naylor MD @ May 16 2020 7:34PM Signed by Dr. Kendrick Naylor @ May 16 2020 7:36PM
[2020-05-16 20:03] LABS: BLOOD UREA NITROGEN,BUN 9 mg/dL (7.0-18.0); CARBON DIOXIDE,CO2 26.7 mmol/L (21.0-32.0); CHLORIDE,CL 104 mmol/L (98-107); GLUCOSE RANDOM 106 mg/dL (74-106); POTASSIUM,K 3.9 mmol/L (3.5-5.1); SODIUM,NA 140 mmol/L (136-145)
[2020-05-16] MEDS ORDERED: Iopamidol 755 MG/ML 500 ML Multipack Bottle IVPUSH STA (20:58)
--- NOTE | 2020-05-16 21:17 | CT ---
INDICATION: Shortness of breath, recent COVID. TECHNIQUE: CT chest PE was acquired with 90 cc Isovue 370 intravenous contrast. COMPARISON: None. FINDINGS: Heart and vasculature: Contrast opacification of the pulmonary arterial tree is adequate. No sign of pulmonary embolism. Heart size is normal. Thoracic aorta and pulmonary artery are normal in caliber.No pericardial effusion. Lungs and pleural: No pleural effusion or pneumothorax. Extensive bilateral ground-glass opacities involving the periphery of the lungs. Lymph nodes/mediastinum: No mediastinal, hilar, or axillary adenopathy. Thyroid gland is normal. Chest wall: No masses. Upper abdomen: Normal. Bones: Unremarkable for age. IMPRESSION: 1. No evidence of pulmonary embolus. 2. Extensive bilateral peripheral ground-glass opacities consistent with a viral pneumonia, presumed COVID-19 pneumonia in this setting. Please note that all CT scans at this facility use dose modulation, iterative reconstruction, and/or weight-based dosing when appropriate to reduce radiation dose to as low as reasonably achievable. Dictated by Raul Fay MD @ May 16 2020 9:05PM Signed by Dr. Raul Fay @ May 16 2020 9:16PM
== END 2020-05-16 22:15 | disposition home or self-care (01) ==
LOC: MW.ED 18:59
DX: R06.02 Shortness of breath (principal); Z79.82 Long term (current) use of aspirin; I10 Essential (primary) hypertension
CPT/HCPCS: 36415; 71045; 71275; 80053; 81025; 85025; 85379; 93005; 99285; Q9967; 93010; 99283